=== PATIENT | male | born 1995 | race Caucasian/White ===

== ENCOUNTER 2021-02-17 16:13 | Emergency (ER) | payer BC ==
[~2021-02-17] VITALS: Ht 188 cm; Wt 87.5 kg
[2021-02-17] MEDS ORDERED: ONDANSETRON HCL INJ 2MG/ML 2ML 2 MG/ML VIAL IV STA (17:00)
[2021-02-17] MEDS ORDERED: Morphine 4mg Syringe 4 MG/ML INJ IV ONE (17:00)
[2021-02-17] MEDS ORDERED: Morphine 2mg Syringe 2 MG/ML SYR ONE (17:12)
[2021-02-17] MEDS ORDERED: FENTANYL CITRATE/PF 100MCG/2 ML INJ IV ONE ×2 (17:45→18:00)
[2021-02-17] MEDS ORDERED: SODIUM CHLORIDE 0.9% 1000ML 1,000 ML IV STA (17:54)
[2021-02-17] MEDS ORDERED: PROPOFOL IV EMULSION 10 MG/ML 20 ML VIAL IV ONE ×2 (18:00→21:45)
[2021-02-17] MEDS ORDERED: KETOROLAC TROMETHAMINE 30 MG/ML VIAL IV STA (18:58)
[2021-02-17] MEDS ORDERED: KETAMINE HCL INJ 50 MG/ML 10 ML VIAL ONE (20:35)
[2021-02-17] MEDS ORDERED: ULTRAM 50MG50 MG PO (21:35)
[2021-02-17] MEDS ORDERED: IBUPROFEN600 MG PO (21:35)
[2021-02-17] MEDS ORDERED: KETAMINE HCL INJ 50 MG/ML 10 ML VIAL IV ONE (21:45)
[2021-02-17 22:33] VITALS: BP 135/56
== END 2021-02-17 22:30 | disposition home or self-care (01) ==
LOC: ER 17:00
DX: S42.492A Other displaced fracture of lower end of left humerus, initial encounter for closed fracture (principal); W20.8XXA Other cause of strike by thrown, projected or falling object, initial encounter; Y92.008 Other place in unspecified non-institutional (private) residence as the place of occurrence of the external cause; F17.210 Nicotine dependence, cigarettes, uncomplicated
CPT/HCPCS: 73070; 73080; 99284; J1885; J2270; J2704; J3010; J7030